=== PATIENT | female | born 1970 | race Caucasian/White ===

== ENCOUNTER 2021-05-05 11:00 | Outpatient (CLI) | payer BC, SELFPAY ==
--- NOTE | ~2021-05-05 | CT_ITS ---
EXAMINATION: CT soft tissue neck w con DATE: 05/05/2021 11:39 INDICATION: Left jaw pain. TECHNIQUE: Computed tomography (CT) of the neck was performed with 75 mL Omnipaque-350 intravenous co ntrast. Automated exposure control and iterative reconstruction technique were employed. The dose-christopher gth product was 518.08 mGy-cm. COMPARISON: None FINDINGS: There are no pathologically enlarged lymph nodes. Though is no visible plaque in the proxim al internal carotid arteries. The major salivary glands are normal. The paranasal sinuses are clear. The mastoid air cells are normal. The mandible is unremarkable. There is mild cervical spondylosis. IMPRESSION: 1. No etiology for the patient's symptoms. Reviewed, dictated and finalized at location A.
== END 2021-05-05 11:01 | disposition home or self-care (01) ==
LOC: ANHIMG 11:08
PROVIDERS: PCP Family Medicine Sports Medicine; Visit Provider Registered Nurse
DX: R68.84 Jaw pain (principal)
CPT/HCPCS: 70491; Q9967